=== PATIENT | male | born 1935 | race Asian ===

== ENCOUNTER 2023-01-23 06:57 | Day surgery (SDC) | payer OTHER ==
[~2023-01-23] VITALS: Ht 152.4 cm; Wt 50.0 kg
[~2023-01-23 06:57] MED LIST: SODIUM CHLORIDE 0.9% 1,000 ML IV ONE
[2023-01-23] MEDS ORDERED: LIDOCAINE 2% 11 ML JELLY TP ONE (06:58)
[2023-01-23] MEDS ORDERED: LIDOCAINE 4% 50 ML SOLUTION TP ONE (06:58)
[2023-01-23] MEDS ORDERED: BENZOCAINE 20% 50 MCG/SPRAY 57 GM TP ONE (06:58)
[2023-01-23] MEDS ORDERED: LEVALBUTEROL 1.25 MG/0.5 ML NEB SOLUTION NEB ONE (06:58)
[2023-01-23] MEDS ORDERED: SODIUM CHLORIDE 0.9% 1,000 ML ONE (07:11)
[2023-01-23] MEDS ORDERED: FentaNYL CITRATE PF 100 MCG/2 ML VIAL ONE (08:09)
[2023-01-23] MEDS ORDERED: MIDAZOLAM HCL 2 MG/2 ML VIAL ONE (08:09)
[2023-01-23] MEDS ORDERED: MethylPREDNISolone SOD SUCC 125 MG/2 ML VIAL IVP ONE (09:00)
[2023-01-23 09:45] VITALS: PULSE 91; RESP 24; O2SAT 99
[2023-01-23] MEDS ORDERED: MethylPREDNISolone SOD SUCC 125 MG/2 ML VIAL ONE (10:05)
== END 2023-01-23 11:55 | disposition home or self-care (01) ==
LOC: SURGERY 06:57
PROVIDERS: ATTEND Internal Medicine Critical Care Medicine
DX: R05.3 Chronic cough (principal); Z88.1 Allergy status to other antibiotic agents; Z98.49 Cataract extraction status, unspecified eye; Z87.01 Personal history of pneumonia (recurrent); J45.909 Unspecified asthma, uncomplicated; I10 Essential (primary) hypertension; Z79.899 Other long term (current) drug therapy; Z98.890 Other specified postprocedural states
CPT/HCPCS: 31623; 88112; 87206; 87101; 87220; 87070; 87186; 31624; 94640; 71045; 87015; J3010; J2250; J2930; Q9967; J7030; Z7610